=== PATIENT | female | born 1960 | race African-American/Black ===

== ENCOUNTER 2024-09-02 20:08 | Emergency (ER) | payer MEDICAID ==
[~2024-09-02] VITALS: Ht 167.6 cm; Wt 122.0 kg
[~2024-09-02 20:08] MED LIST: ALBU90AE INH; ARIP15TA2 MT; ASPI-1406 PO; ATOR10TA69 PO; DILT180T11 PO; DIVA500T3 PO; LOSA50TA41 MT; TIOT4MIS4 INH
[2024-09-02 20:12] VITALS: BP 127/67; PULSE 80; RESP 20; TEMP 94.9; O2SAT 100
== END 2024-09-03 02:16 | disposition left against medical advice (07) ==
LOC: ER 20:08
DX: F41.9 Anxiety disorder, unspecified (principal); Z53.21 Procedure and treatment not carried out due to patient leaving prior to being seen by health care provider

== ENCOUNTER 2024-09-12 21:59 | Emergency (ER) | payer MEDICAID ==
[~2024-09-12] VITALS: Ht 167.6 cm; Wt 113.5 kg
[2024-09-12 23:38] LABS: BASOPHILS % 0.6 % (0.0-2.0); EOSINOPHILS % 1.3 % (0.0-5.0); HEMATOCRIT. 37.2 % (36.0-48.0); HEMOGLOBIN. 12.1 g/dL (12.0-16.0); MEAN CORPUSCULAR HEMOGLOBIN 30.2 pg (28.0-32.0); MEAN CORPUSCULAR HGB CONC 32.5 g/dL (31.0-37.0); MEAN CORPUSCULAR VOLUME 92.9 fL (81.0-99.0); MEAN PLATELET VOLUME 7.8 fl (7.4-10.4); MONOCYTES % 6.8 % (2.0-8.0); NEUTROPHILS % 36.3 % (40.0-76.0); PLATELET 275 x1000/uL (130-400); RED CELL DISTRIBUTION WIDTH 14.3 % (11.6-14.6)
[2024-09-12 23:42] LABS: CHLORIDE 98 mEq/L (98-107); POTASSIUM 3.9 mEq/L (3.5-5.1); SODIUM 135 mEq/L (136-145)
[2024-09-12 23:43] LABS: CALCIUM 9.5 mg/dL (8.7-10.4); CARBON DIOXIDE 33 mEq/L (21-32)
[2024-09-12 23:48] LABS: CREATININE 0.7 mg/dL (0.6-1.0); GLUCOSE 119 mg/dL (70-105); UREA NITROGEN BLOOD 17 mg/dL (9-23)
[2024-09-12 23:49] LABS: TROPONIN I HIGH SENSITIVITY 28 ng/L (3.0-34)
[2024-09-13] MEDS: PREDNISONE 20MG TABLET PO STA (03:09)
[2024-09-13 03:10] VITALS: PULSE 103; RESP 18; O2SAT 95
[2024-09-13] MEDS: ALBUTEROL (0.083%) 2.5MG/3ML NEB HHN STA (03:10)
[2024-09-13] MEDS: IPRATROPIUM BROMIDE (0.02%) 0.5MG/2.5ML NEB HHN STA (03:10)
[2024-09-13] MEDS ORDERED: PRED10TA MT (03:31)
[2024-09-13] MEDS ORDERED: ALBU90AE INH (03:31)
[2024-09-13] MEDS ORDERED: AMOX-494 MT (03:31)
[2024-09-13] MEDS ORDERED: BENZ150C8 MT (03:32)
[2024-09-13 04:01] VITALS: BP 129/78; PULSE 78; RESP 20; TEMP 36.89184; O2SAT 96
== END 2024-09-13 04:02 | disposition home or self-care (01) ==
LOC: ER 21:59
DX: J44.1 Chronic obstructive pulmonary disease with (acute) exacerbation (principal); E78.00 Pure hypercholesterolemia, unspecified; I10 Essential (primary) hypertension; F31.9 Bipolar disorder, unspecified; F41.9 Anxiety disorder, unspecified; Z79.899 Other long term (current) drug therapy; Z90.49 Acquired absence of other specified parts of digestive tract; Z98.890 Other specified postprocedural states
CPT/HCPCS: 80048; 85025; 84484; 36415; 71045; 93005; 99285; 94640; 94070; 98960; J7512; Z7610 ×3; 94664

== ENCOUNTER 2024-12-05 00:59 | Emergency (ER) | payer MEDICARE, MEDICAID ==
[~2024-12-05] VITALS: Ht 167.6 cm; Wt 138.0 kg
[~2024-12-05 00:59] MED LIST changes: +AMOX-494 MT; +BENZ150C8 MT; +PRED10TA MT
[2024-12-05 01:04] VITALS: BP 143/83; PULSE 63; RESP 18; TEMP 36.8; O2SAT 100
[2024-12-05 03:08] LABS: HEMATOCRIT. 37.7 % (36.0-48.0); MEAN CORPUSCULAR HEMOGLOBIN 29.6 pg (28.0-32.0); MEAN CORPUSCULAR HGB CONC 31.8 g/dL (31.0-37.0); MEAN CORPUSCULAR VOLUME 92.8 fL (81.0-99.0); MEAN PLATELET VOLUME 8.1 fl (7.4-10.4); PLATELET 274 x1000/uL (130-400); RED BLOOD CELL COUNT 4.06 mill/uL (4.2-5.4); RED CELL DISTRIBUTION WIDTH 14.9 % (11.6-14.6); WHITE BLOOD COUNT 16.3 x1000/uL (4.5-11.0)
[2024-12-05 03:19] LABS: CHLORIDE 96 mEq/L (98-107); POTASSIUM 3.9 mEq/L (3.5-5.1); SODIUM 135 mEq/L (136-145)
[2024-12-05 03:20] LABS: CALCIUM 8.8 mg/dL (8.7-10.4); CARBON DIOXIDE 30 mEq/L (21-32)
[2024-12-05 03:25] LABS: CREATININE 0.6 mg/dL (0.6-1.0); GLUCOSE 109 mg/dL (70-105); UREA NITROGEN BLOOD 12 mg/dL (9-23)
[2024-12-05 03:40] LABS: DIFFERENTIAL COMMENT 1
[2024-12-05 04:21] LABS: TROPONIN I HIGH SENSITIVITY 42 ng/L (3.0-34)
[2024-12-05] MEDS ORDERED: ALBU18HF2 IH (04:56)
[2024-12-05 16:13] LABS: PLATELET ESTIMATE NORMAL
== END 2024-12-05 05:03 | disposition left against medical advice (07) ==
LOC: ER 01:20
DX: J44.1 Chronic obstructive pulmonary disease with (acute) exacerbation (principal); I10 Essential (primary) hypertension; E78.00 Pure hypercholesterolemia, unspecified; F32.A Depression, unspecified; F41.9 Anxiety disorder, unspecified; Z88.7 Allergy status to serum and vaccine; Z88.3 Allergy status to other anti-infective agents; Z98.890 Other specified postprocedural states; Z79.82 Long term (current) use of aspirin; Z79.899 Other long term (current) drug therapy
CPT/HCPCS: 36415; 71045; 80048; 83880; 84484; 85025; 99284

== ENCOUNTER 2025-07-27 20:54 | Emergency (ER) | payer MEDICARE, MEDICAID ==
[~2025-07-27] VITALS: Ht 170.2 cm; Wt 121.0 kg
[~2025-07-27 20:54] MED LIST changes: -AMOX-494 MT; -ARIP15TA2 MT; -ASPI-1406 PO; +ASPI-864 MT; -ATOR10TA69 PO; +BECL10.6 IH; -BENZ150C8 MT; +DILT180C76 PO; -DILT180T11 PO; +FURO20TA4 PO; +LIP40 PO; +OLAN15TA97 PO; -PRED10TA MT; -TIOT4MIS4 INH
[2025-07-27 20:58] VITALS: O2SAT 98
[2025-07-27] MEDS ORDERED: MORPHINE SULFATE 4 MG/ML INJ (FOR IV/IM USE) IV ONE (22:00)
[2025-07-27 22:44] LABS: BASOPHILS % 0.6 % (0.0-2.0); EOSINOPHILS % 2.8 % (0.0-5.0); HEMATOCRIT. 37.6 % (36.0-48.0); HEMOGLOBIN. 12.2 g/dL (12.0-16.0); LYMPHOCYTES % 58.5 % (20.0-50.0); MEAN PLATELET VOLUME 8.0 fl (7.4-10.4); MONOCYTES % 11.2 % (2.0-8.0); NEUTROPHILS % 26.9 % (40.0-76.0); PLATELET 342 x1000/uL (130-400); RED BLOOD CELL COUNT 4.07 mill/uL (4.2-5.4); RED CELL DISTRIBUTION WIDTH 15.1 % (11.6-14.6)
[2025-07-27] MEDS: PIPERACILLIN/TAZO 3.375G/50ML 50 ML IV ONE (23:41)
[2025-07-27] MEDS: VANCOMYCIN 1G PREMIX 200 ML IV ONE (23:54)
[2025-07-28 00:06] LABS: INR 1.0
[2025-07-28 00:07] LABS: CREATININE 0.6 mg/dL (0.6-1.0)
[2025-07-28 00:08] LABS: UREA NITROGEN BLOOD 9 mg/dL (9-23)
[2025-07-28 00:09] LABS: ASPARTATE AMINOTRANSFERASE 16 IU/L (<34)
[2025-07-28 00:10] LABS: BILIRUBIN DIRECT < 0.1 mg/dL (<=3.0); BILIRUBIN TOTAL 0.2 mg/dL (0.1-1.0); PROTEIN TOTAL 6.6 g/dL (6.0-8.3)
[2025-07-28] MEDS ORDERED: CEPH500C2 MT (00:35)
[2025-07-28] MEDS ORDERED: IBUP-1455 MT (00:35)
[2025-07-28] MEDS ORDERED: LIDO700A30 TP (00:35)
[2025-07-28] MEDS: MORPHINE SULFATE 4 MG/ML INJ (FOR IV/IM USE) IV NR (00:39)
[2025-07-28] MEDS: IBUPROFEN 600MG TABLET PO ONE (00:40)
[2025-07-28 01:46] VITALS: BP 100/60; PULSE 65; RESP 12; TEMP 36.5; O2SAT 96
== END 2025-07-28 02:08 | disposition home or self-care (01) ==
LOC: ER 20:54 → CMPBEDREQ 07-28 08:46
DX: I87.2 Venous insufficiency (chronic) (peripheral) (principal); I11.0 Hypertensive heart disease with heart failure; I45.4 Nonspecific intraventricular block; Z79.51 Long term (current) use of inhaled steroids; Z79.82 Long term (current) use of aspirin; Z79.899 Other long term (current) drug therapy; Z90.49 Acquired absence of other specified parts of digestive tract; Z90.89 Acquired absence of other organs
CPT/HCPCS: 99285; 93970; 96365; 71045; 96367; 80076; 80048; 83880; 83605; 85025; 85610; 85730; 86850; 86900; 86901; 87040; 36415; 84145; 73552; 93005; J2543; J3373